=== PATIENT | female | born 1990 | race Caucasian/White ===

== ENCOUNTER → 2023-02-08 09:10 | Outpatient (BNVA) | payer MEDICAID, SELFPAY | PROVIDERS: PCP Nurse Practitioner Family; Visit Provider Nurse Practitioner Family | DX: K86.89 Other specified diseases of pancreas (principal) | CPT/HCPCS: 80053; 82150; 83690; 85025; 86003; 86008 ==

== ENCOUNTER → 2023-04-08 10:21 | Outpatient (BNVA) | payer MEDICAID, SELFPAY | PROVIDERS: PCP Nurse Practitioner Family; Visit Provider Nurse Practitioner | DX: E16.2 Hypoglycemia, unspecified (principal) | CPT/HCPCS: 80053; 84443; 85025 ==